=== PATIENT | female | born 1965 | race Caucasian/White ===

== ENCOUNTER → 2018-01-20 | Day surgery (SDC) | payer OTHER ==
[~2018-01-20] MED LIST: LIDOCAINE 2% PF Vial for OR 5 ML VIAL.; PROPOFOL 40 ML IV
[2018-01-20] MEDS: IV RINGERS,LACTATED 1000ML 1,000 ML IV ×2 (06:58→06:59)
== END | disposition home or self-care (01) ==
LOC: ENDOS 06:24
DX: Z12.11 Encounter for screening for malignant neoplasm of colon (principal); K64.0 First degree hemorrhoids; Z88.1 Allergy status to other antibiotic agents; I10 Essential (primary) hypertension; E11.9 Type 2 diabetes mellitus without complications; F41.9 Anxiety disorder, unspecified; Z79.899 Other long term (current) drug therapy; Z83.3 Family history of diabetes mellitus; Z82.49 Family history of ischemic heart disease and other diseases of the circulatory system; Z80.0 Family history of malignant neoplasm of digestive organs; Z72.89 Other problems related to lifestyle; K21.9 Gastro-esophageal reflux disease without esophagitis; M19.90 Unspecified osteoarthritis, unspecified site; E66.9 Obesity, unspecified; F32.9 Major depressive disorder, single episode, unspecified; F17.210 Nicotine dependence, cigarettes, uncomplicated; Z79.84 Long term (current) use of oral hypoglycemic drugs
CPT/HCPCS: 45378; J2001; J2704

== ENCOUNTER → 2019-05-09 | Outpatient (CLI) | payer OTHER ==
[2018-01-20 08:19] VITALS: BP 102/71
[~2019-05-09] MED LIST changes: +HYDR12.575 PO; -LIDOCAINE 2% PF Vial for OR 5 ML VIAL.; +LISI-130 PO; +METF500T16 PO; +ONDA4TAB7 PO; +PANT20TA2 PO; +PHEN37.53 PO; -PROPOFOL 40 ML IV; +SERT50TA8 PO
--- NOTE | 2019-05-09 08:34 | RAD ---
Right upper quadrant ultrasound 05/09/2019 8:00 AM Clinical History: Elevated liver function tests Technique: Ultrasound examination of the abdomen was performed, and multiple static images were submitted for review. Comparison: None Findings: The pancreas is nonvisualized. The aorta and IVC are essentially nonvisualized. The liver is partially visualized but appears to be enlarged measuring 20 cm longitudinally. The liver appears to be diffusely echogenic suggesting hepatic steatosis. The gallbladder is normal in appearance without evidence of wall thickening, stones, or sludge. The common bile duct is top normal in diameter at 4 mm. The right kidney is normal in appearance measuring 12.3 cm in length. IMPRESSION: Limited study demonstrating hepatomegaly and hepatic steatosis. Electronically signed by: Herbert Spencer MD (05/09/2019 8:31 AM) [id number]
== END | disposition home or self-care (01) ==
LOC: US 07:41
PROVIDERS: ATTEND Internal Medicine Gastroenterology
DX: K76.0 Fatty (change of) liver, not elsewhere classified (principal); R16.0 Hepatomegaly, not elsewhere classified
CPT/HCPCS: 76705